=== PATIENT | female | born 1940 | race Caucasian/White ===

== ENCOUNTER 2019-10-24 16:02 | Emergency (ER) | payer OTHER ==
[~2019-10-24] VITALS: Ht 149.9 cm; Wt 46.7 kg
--- NOTE | 2019-10-24 16:10 | NUR ---
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 TO ER BED 8, HOOKED TO MONITOR, CHANGED TO HOSP GOWN, PROVIDE W WARM BLANKET, AWAITING MD TORRES.
--- NOTE | 2019-10-24 16:40 | NUR ---
DR PATRICIO AT BEDSIDE
[2019-10-24] MEDS ORDERED: MORPHINE SULFATE INJ 2 MG/ML DISP.SYRIN IV ONE (17:00)
[2019-10-24 17:07] LABS: BASOPHILS % (AUTO) 0.4 % (0.0-2.0); EOSINOPHILS % (AUTO) 0.7 % (0.0-6.0); HEMATOCRIT 38 % (33-45); HEMOGLOBIN 12.7 g/dL (11.5-14.8); LYMPHOCYTES # (AUTO) 0.7 /CMM (0.8-4.8); LYMPHOCYTES % (AUTO) 8.1 % (20.0-44.0); MEAN CORPUSCULAR HGB CONC 34 g/dl (31.0-36.0); MEAN CORPUSCULAR VOLUME 98 fL (82-100); MONOCYTES # (AUTO) 0.4 /CMM (0.1-1.30); MONOCYTES % (AUTO) 4.5 % (2.0-12.0); NEUTROPHILS # (AUTO) 7.3 /CMM (1.8-8.9); NEUTROPHILS % (AUTO) 86.3 % (43.0-81.0); PLATELET COUNT (AUTO) 224 /CMM (150-450); RED BLOOD CELL COUNT(AUTO) 3.86 MIL/uL (4.0-5.2); WHITE BLOOD COUNT (AUTO) 8.5 K/uL (4.3-11.0)
--- NOTE | 2019-10-24 17:14 | NUR ---
PATIENT REFUSED URINALYSIS, PER PATIENT, SHE HAD URINALYSIS 2 HRS AGO FROM [place] AND WILL KNOW THE RESULTS AFTER 5 DAYS. MADE AWARE
[2019-10-24] MEDS ORDERED: FENTANYL PF 100MCG/2ML AMPUL ONE ×2 (17:16→21:42)
--- NOTE | 2019-10-24 17:19 | NUR ---
CHIEF SUSTAINABILITY OFFICER AT BEDSIDE
[2019-10-24 17:29] LABS: CALCIUM, SERUM 8.5 mg/dL (8.5-10.1); CARBON DIOXIDE 28 mmol/L (21-32); CHLORIDE 97 mmol/L (98-107); CREATININE 0.5 mg/dL (0.6-1.3); GLUCOSE 216 mg/dL (74-106); POTASSIUM 4.1 mmol/L (3.5-5.1); SODIUM SERUM 133 mmol/L (136-145); UREA NITROGEN, BLOOD 11 mg/dL (7-18)
[2019-10-24] MEDS: FENTANYL PF 100MCG/2ML AMPUL IV ONE ×2 (17:33→21:45)
--- NOTE | 2019-10-24 18:24 | NUR ---
LA [facility]THO [phone] RICHARD CARVAJAL
--- NOTE | 2019-10-24 18:57 | NUR ---
INSTRUCTED PATIENT FOR LIGHT MEAL UNTIL 12 MIDNIGHT. AWARE NPO AFTER MIDNIGHT FOR POSSIBLE SURGERY. PATIENT AND FAMILY VERBALIZED UNDERSTANDING.
--- NOTE | 2019-10-24 19:20 | NUR ---
Note monika in EDM - 10/24/19 at 1940 by LILIAN PT RECEIVED ON BED AWAKE, ALERT AND ORIENTEDX4. NO REPS DISTRESS NOTED. FAMILY AT BEDSIDE. PT EATING DINNER AT THIS TIME.
--- NOTE | 2019-10-24 19:20 | NUR ---
PT RECEIVED ON BED AWAKE, ALERT AND ORIENTEDX4. NO REPS DISTRESS NOTED. FAMILY AT BEDSIDE. PT EATING DINNER AT THIS TIME.
--- NOTE | 2019-10-24 19:26 | NUR ---
REPORT GIVEN TO RADHA CANTU FOR JOSUE
--- NOTE | 2019-10-24 21:06 | NUR ---
CALLED [facility] FOR UPDATE, WAS INFORMED THEY ARE STILL WORKING ON TRANSFER INFO AND TO EXPECT A CALL SHORTLY
--- NOTE | 2019-10-24 21:40 | NUR ---
pt complained of l hip pain again. md made aware. verbal orderreceived to give another dose of fentanyl 25mcg iv x 1 dose.
--- NOTE | 2019-10-24 21:43 | NUR ---
RECIEVED TRANSFER INFO TO [facility] ROOM [address] Wilberto JOE ETA [id number] [facility] TRANSPORT NUMBER FOR REPORT
--- NOTE | 2019-10-24 22:18 | NUR ---
SPOKE WITH JUNE, AFTER HOURS NURSE FOR CLINICAL INFORMATION. VERBAL AUTHORIZATION RECEIVED
--- NOTE | 2019-10-24 22:26 | NUR ---
REPORT GIVEN TO PEPE READ FOR JOSUE AT [facility]
--- NOTE | 2019-10-24 22:35 | NUR ---
PRN [id number] AT BEDSIDE FOR PT TRANSPORT TO [facility]. REPORT GIVEN TO AMBULANCE STAFF. PT IS IN STABLE CONDITION FOR TRANSPORT
[2019-10-24 22:36] VITALS: BP 152/64
== END 2019-10-24 22:38 | disposition short-term general hospital (02) ==
LOC: ER 16:06
DX: S72.092A Other fracture of head and neck of left femur, initial encounter for closed fracture (principal); I10 Essential (primary) hypertension; E11.9 Type 2 diabetes mellitus without complications; Z88.0 Allergy status to penicillin; Z88.8 Allergy status to other drugs, medicaments and biological substances; Z88.2 Allergy status to sulfonamides; Z88.5 Allergy status to narcotic agent; Z88.1 Allergy status to other antibiotic agents; W01.0XXA Fall on same level from slipping, tripping and stumbling without subsequent striking against object, initial encounter; Y93.89 Activity, other specified; Y92.89 Other specified places as the place of occurrence of the external cause; Y99.8 Other external cause status
CPT/HCPCS: 36415; 71045; 73503; 73552; 73560; 80048; 85025; 85610; 85730; 93005; 96374; 96376; 99285; J3010 ×2; 73502